=== PATIENT | female | born 1930 | race Caucasian/White ===

== ENCOUNTER 2016-12-21 16:08 | Emergency (ER) | payer MEDICARE, OTHER ==
[2016-12-21 17:49] VITALS: BP 129/61
[2016-12-21] MEDS ORDERED: Tetan/Diph/Pertus SYR(Tdap)* 0.5 ML SYR(BOOSTRIX) use SYR IM ONE (19:29)
[2016-12-21] MEDS ORDERED: Benzoin Compound STICK ONE (20:01)
--- NOTE | 2016-12-21 20:12 | RAD ---
Indication: Laceration lateral malleolus. 3 views of the right ankle demonstrates no fracture. Soft tissue swelling is noted adjacent to the lateral malleolus with likely laceration. IMPRESSION: Soft tissue swelling without foreign body or bony abnormality.
--- NOTE | 2016-12-21 20:18 | UC ---
Laceration HPI - HPI Summary HPI Summary: OUTSIDE AND TRIPPED - PIECE OF METAL FENCING PUNCTURED HER RIGHT ANKLE. UNSURE OF LAST TETANUS. - History Of Current Complaint Chief Complaint: UC Stated Complaint: ANKLE LACERATION Time Seen by Provider: 12/21/16 19:21 Hx Obtained From: Patient Laceration Location: Ankle - RIGHT Mechanism Of Injury: FB Potential Onset/Duration: Sudden Onset, Lasting Hours, Still Present Severity: Moderate Pain Intensity: 8 Pain Scale Used: 0-10 Numeric - Allergies/Home Medications Allergies/Adverse Reactions: Allergies Allergy/AdvReac Type Severity Reaction Status Date / Time Ciprofloxacin [From Cipro] Allergy Rash Verified 09/23/16 22:45 Penicillins [PCN] Allergy Unknown Verified 09/23/16 22:45 Reaction Details PMH/Surg Hx/FS Hx/Imm Hx Previously Healthy: Yes Endocrine History Of: Denies: Diabetes, Thyroid Disease Cardiovascular History Of: Denies: Cardiac Disorders, Hypertension, Pacemaker/ICD Respiratory History Of: Denies: COPD, Asthma GI/ History Of: Denies: Ulcer, Renal Disease Neurological History Of: Denies: Dementia, Seizures - Surgical History Surgical History: Yes Surgery Procedure, Year, and Place: right TOTAL KNEE REPLACEMENT. tonsilectomy. left leg balloon for clot - Family History Known Family History: Positive: None Negative: Hypertension, Diabetes - Social History Alcohol Use: Occasionally Alcohol Amount: wine Substance Use Type: None Smoking Status (MU): Never Smoked Tobacco Have You Smoked in the Last Year: No - Immunization History Most Recent Influenza Vaccination: 09/24/2016 Most Recent Tetanus Shot: unknown Most Recent Pneumonia Vaccination: unknown Review of Systems Constitutional: Negative Skin: Other - LACERATION RIGHT ANKLE Respiratory: Negative Cardiovascular: Negative Gastrointestinal: Negative Musculoskeletal: Arthralgia, Edema All Other Systems Reviewed And Are Negative: Yes Physical Exam Triage Information Reviewed: Yes Appearance: Well-Appearing, No Pain Distress, Well-Nourished Vital Signs: Initial Vital Signs Temp 98.5 F 12/21/16 17:43 Pulse 76 12/21/16 17:43 Resp 18 12/21/16 17:43 BP 129/61 12/21/16 17:43 Pulse Ox 96 12/21/16 17:43 Vital Signs Reviewed: Yes Eyes: Positive: Conjunctiva Clear ENT: Positive: Hearing grossly normal Neck: Positive: Supple Respiratory: Positive: No respiratory distress, No accessory muscle use Cardiovascular: Positive: Pulses Normal Abdomen Description: Positive: Soft Musculoskeletal: Positive: ROM Intact, Edema @ - RIGHT ANKLE LATERALLY Neurological: Positive: Alert Psychological: Positive: Age Appropriate Behavior Skin: Positive: Other - 1.5CM LINEAR LACERATION RIGHT ANKLE OVERLYING LATERAL MALLEOLUS WITH ASSOCIATED SOFT TISSUE SWELLING Laceration Repair - Laceration Repair 1 Description: Linear Laceration Size After Repair: Length (cm) - 1.5CM, Width (mm) - 1MM, Depth (mm) - 4MM Modified For Repair: No Cleansing Completed Via Routine Prep: Yes Closure Material: SteriStrips Diagnostics - Radiology RIGHT ANKLE XRAY Xray Interpretation: Positive (See Comments) - Soft tissue swelling without foreign body or bony abnormality. Radiology Interpretation Completed By: Radiologist Laceration Course/Dx - Course/Dx Course Of Treatment: DISCUSSED SUTURES VS. STERI STRIPS. ADVISED THAT SUTURES WOULD GIVE BETTER COSMETIC OUTCOME GIVEN GAPING WOUND. PT PREFERS STERI-STRIPS. UPDATE TDAP. XRAY WITHOUT FB OR BONY INJURY. - Differential Dx - Laceration/Wound Provider Diagnoses: 1. LACERATION REPAIR - RIGHT ANKLE. 2. TDAP BOOSTER Discharge - Discharge Plan Condition: Stable Disposition: HOME Patient Education Materials: Laceration (ED), Steristrips (ED) Referrals: Kim Luo MD [Primary Care Provider] - If Needed Additional Instructions: DO NOT PEEL THE STERI STRIPS OFF. THEY WILL FALL OFF ON THEIR OWN WITHIN A WEEK OR 2. SEEK FOLLOW-UP IF YOU DEVELOP SPREADING REDNESS OF THE SKIN, PURULENT DRAINAGE, FEVER, INCREASED PAIN OR ANY OTHER CONCERNING SYMPTOMS. TETANUS IMMUNIZATION GIVEN: You have been given an immunization against tetanus. Please record this in your records. In general, a booster is needed only once every 10 years. The tetanus shot protects against tetanus or "lockjaw," which is a complication of certain wound infections (the tetanus shot cannot protect against the actual infection). The immunization site may become warm and red due to local reaction. If this occurs, apply warm compresses and take aspirin or ibuprofen to reduce inflammation and discomfort. Return for evaluation if the reaction becomes severe.
== END 2016-12-21 20:24 | disposition home or self-care (01) ==
LOC: UCEAST 16:08
DX: S91.011A Laceration without foreign body, right ankle, initial encounter (principal); W26.9XXA Contact with unspecified sharp object(s), initial encounter; Y93.9 Activity, unspecified; Y92.9 Unspecified place or not applicable; Z23 Encounter for immunization; Z88.1 Allergy status to other antibiotic agents; Z88.0 Allergy status to penicillin; Z96.651 Presence of right artificial knee joint
CPT/HCPCS: 90471; 90715; 99212; G0463

== ENCOUNTER 2017-07-04 17:20 | Emergency (ER) | payer MEDICARE, OTHER ==
[2017-07-04 17:27] VITALS: BP 150/73
[2017-07-04] MEDS ORDERED: predniSONE TAB* 20 MG PO ONE (17:38)
[2017-07-04] MEDS ORDERED: diPHENhydraMINE PO* 50 MG PO ONE (17:38)
--- NOTE | 2017-07-04 19:28 | ED ---
Nishant Fernandez Nikita, scribed for Sky Pearson MD on 07/04/17 at 1727 . Allergic Reaction/Systemic - History of Current Complaint Hx Obtained From: Patient Hx Last Menstrual Period: menopausal Onset/Duration: Sudden Onset, Started days ago - Last night, Still Present Timing: Constant, Lasting Days - Last night Location: Discrete @ - Face but has spread to arms Character: Swelling, Pruritus Aggravating Factor(s): Nothing Alleviating Factor(s): Cold Associated Signs And Symptoms: Positive: Other: - Patient reports swelling, erythema, and pruritic symptoms mostly around the eyes, pruritic rash under the chin, inflammation and slightly pruritic on bilateral arms and chest. Patient denies dyspnea and swelling in the throat, and rhinorrhea. - Allergies/Home Medications Allergies/Adverse Reactions: Allergies Allergy/AdvReac Type Severity Reaction Status Date / Time Ciprofloxacin [From Cipro] Allergy Rash Verified 07/04/17 17:27 Penicillins [PCN] Allergy Unknown Verified 07/04/17 17:27 Reaction Details Home Medications: Home Medications Multiple Vitamins W/ Minerals [Multivitamin] 1 liq PO DAILY 07/04/17 [History Confirmed 07/04/17] PMH/Surg Hx/FS Hx/Imm Hx Endocrine/Hematology History: Denies: Hx Diabetes, Hx Thyroid Disease Cardiovascular History: Reports: Other Cardiovascular Problems/Disorders - PAD Denies: Hx Hypertension, Hx Pacemaker/ICD Respiratory History: Denies: Hx Asthma, Hx Chronic Obstructive Pulmonary Disease (COPD) GI History: Denies: Hx Ulcer History: Denies: Hx Dialysis, Hx Renal Disease Musculoskeletal History: Reports: Hx Orthopedic Injury - right femur fx Denies: Hx Back Problems Sensory History: Denies: Hx Contacts or Glasses, Hx Hearing Aid Opthamlomology History: Denies: Hx Contacts or Glasses Neurological History: Denies: Hx Dementia, Hx Seizures Psychiatric History: Denies: Hx Panic Disorder - Cancer History Cancer Type, Location and Year: none - Surgical History Surgery Procedure, Year, and Place: right TOTAL KNEE REPLACEMENT. tonsilectomy. left leg balloon for clot Hx Anesthesia Reactions: No Infectious Disease History: Denies: Hx Clostridium Difficile, Hx Hepatitis, Hx Human Immunodeficiency Virus (HIV), Hx of Known/Suspected MRSA, Hx Shingles, Hx Tuberculosis, Hx Known/ Suspected VRE, Hx Known/Suspected VRSA, History Other Infectious Disease - Family History Known Family History: Negative: Hypertension, Diabetes - Social History Alcohol Use: Occasionally Alcohol Amount: wine Substance Use Type: Reports: None Smoking Status (MU): Never Smoked Tobacco Have You Smoked in the Last Year: No Review of Systems Positive: Erythema, Other - Swelling, pruritic symptoms Positive: Other - pruritic rash under the chin; NEGATIVE: rhinorrhea Positive: Other - NEGATIVE: dyspnea and swelling in throat Positive: Other - , inflammation and slightly pruritic on bilateral arms and chest All Other Systems Reviewed And Are Negative: Yes Physical Exam - Summary Physical Exam Summary: Skin: There is a macular rash on both arms. HEENT: There is redness to her face and hives on her face. There is marking swelling on her eyes. Orbits are edematous and swelling. The pupils are equal and reactive. The tympanic membranes are intact. There is no rhinorrhea or conjuctivitis. There is no swelling in the mouth throat, or posterior pharynx. No strider on neck. Respiratory: Lungs are clear. Triage Information Reviewed: Yes Vital Signs On Initial Exam: Initial Vitals Temp Pulse Resp BP Pulse Ox 99.8 F 93 18 150/73 96 07/04/17 17:24 07/04/17 17:24 07/04/17 17:24 07/04/17 17:24 07/04/17 17:24 Vital Signs Reviewed: Yes Diagnostics - Vital Signs Vital Signs Temp Pulse Resp BP Pulse Ox 07/04/17 17:24 99.8 F 93 18 150/73 96 - Laboratory Lab Statement: Any lab studies that have been ordered have been reviewed, and results considered in the medical decision making process. Allergic Reaction Course/Dx - Course Assessment/Plan: This patient is an 87 year old F presenting to [facility] with a chief complaint of an allergic reaction since yesterday. The pt was out weeding yesterday and might have come in contact with poison mil (didnt see any ). PT is currently feeling no pain. The CC is described as unbearable. Symptoms aggravated by nothing. Symptoms alleviated by cold compress (took Aspirin which did not help). Patient reports swelling, erythema, and pruritic symptoms mostly around the eyes, pruritic rash under the chin, inflammation and slightly pruritic on bilateral arms and chest. Patient denies dyspnea and swelling in the throat, and rhinorrhea. Pt has a cat that may have rolled around in something that could have caused her allergic reaction. Pt will be discharged with Benadryl and Prednisone and is instructed to follow up with her PCP. Pt is agreeable with this plan. - Diagnoses Differential Diagnosis/HQI/PQRI: Positive: Other - rhus dermatitis, poison mil exposure Provider Diagnoses: Allergic reaction Discharge - Discharge Plan Condition: Stable Disposition: HOME Prescriptions: diPHENhydraMINE PO* [Benadryl PO 50 MG CAP*] 50 mg PO Q6H PRN #30 cap PRN Reason: Itching predniSONE TAB* [Deltasone TAB*] 10 mg PO DAILY #38 tab Patient Education Materials: Allergies (ED) Referrals: Kim Luo MD [Primary Care Provider] - 3 Days The documentation as recorded by the Nishant leavitt Nikita accurately reflects the service I personally performed and the decisions made by , Sky Pearson MD.
== END 2017-07-04 17:52 | disposition home or self-care (01) ==
LOC: UCEAST 17:20
DX: T78.40XA Allergy, unspecified, initial encounter (principal); X58.XXXA Exposure to other specified factors, initial encounter; I73.9 Peripheral vascular disease, unspecified; Z96.651 Presence of right artificial knee joint; Z88.1 Allergy status to other antibiotic agents; Z88.0 Allergy status to penicillin
CPT/HCPCS: 99212; A9270-GY; G0463; J7512

== ENCOUNTER 2018-12-08 11:31 | Emergency (ER) | payer MEDICARE, OTHER ==
--- NOTE | 2018-12-08 12:02 | ED ---
Lower Extremity - HPI Summary HPI Summary: An 88 y/o female presents to [facility] with a chief complaint of right thigh pain post mechanical fall on 12/07/18. She says that she was out shoveling snow when she slipped and fell. She denies hitting her head or back, claiming that she landed on her side and hands. She is able to ambulate but notes that leg movement and walking aggravates her pain. She has had a constant pain ever since her fall. At triage she rated her pain as an 8/10 in severity. She reports that her pain is from her right knee up to her hip. She says that she has had surgeries around her current area of pain after a fall during Thanksgiving dinner two years ago. She denies fever, chills, erythema (eyes), sore throat, chest pain, shortness of breath, cough, abdominal pain, vomiting, nausea, dysuria, hematuria, edema, rash and dizziness. - History of Current Complaint Chief Complaint: EDExtremityLower Stated Complaint: RIGHT THIGH PAIN Time Seen by Provider: 12/08/18 11:50 Hx Obtained From: Patient Hx Last Menstrual Period: menopausal Mechanism Of Injury: Fall From A Standing Position Onset of Pain: Immediate, Post Accident, Prior to Arrival Onset/Duration: Days Severity Initially: Severe Severity Currently: Severe Pain Intensity: 8 Pain Scale Used: 0-10 Numeric Timing: Constant, Lasting Days Location: Is Discrete @ - right thigh Character Of Pain: Unable To Describe Associated Signs And Symptoms: Positive: Knee Pain. Negative: Swelling, Fever, Dizziness Aggravating Factor(s): Standing, Ambulation Alleviating Factor(s): Other - sitting down, not moving her leg Able to Bear Weight: Yes - Allergies/Home Medications Allergies/Adverse Reactions: Allergies Allergy/AdvReac Type Severity Reaction Status Date / Time MS Ciprofloxacin [From Cipro] Allergy Rash Verified 07/04/17 17:27 MS Penicillins [PCN] Allergy Unknown Verified 07/04/17 17:27 Reaction Details Home Medications: Home Medications NK [No Home Medications Reported] 12/08/18 [History Confirmed 12/08/18] PMH/Surg Hx/FS Hx/Imm Hx Endocrine/Hematology History: Denies: Hx Diabetes, Hx Thyroid Disease Cardiovascular History: Reports: Other Cardiovascular Problems/Disorders - PAD Denies: Hx Hypertension, Hx Pacemaker/ICD Respiratory History: Denies: Hx Asthma, Hx Chronic Obstructive Pulmonary Disease (COPD) GI History: Denies: Hx Ulcer History: Denies: Hx Dialysis, Hx Renal Disease Musculoskeletal History: Reports: Hx Orthopedic Injury - right femur fx Denies: Hx Back Problems Sensory History: Denies: Hx Contacts or Glasses, Hx Hearing Aid Opthamlomology History: Denies: Hx Contacts or Glasses Neurological History: Denies: Hx Dementia, Hx Seizures Psychiatric History: Denies: Hx Panic Disorder - Cancer History Cancer Type, Location and Year: none - Surgical History Surgery Procedure, Year, and Place: RIGHT TOTAL KNEE REPLACEMENT. TONSILLECTOMY Hx Anesthesia Reactions: No Infectious Disease History: No Infectious Disease History: Denies: Hx Clostridium Difficile, Hx Hepatitis, Hx Human Immunodeficiency Virus (HIV), Hx of Known/Suspected MRSA, Hx Shingles, Hx Tuberculosis, Hx Known/ Suspected VRE, Hx Known/Suspected VRSA, History Other Infectious Disease, Traveled Outside the [place] in Last 30 Days - Family History Known Family History: Negative: Hypertension, Diabetes - Social History Alcohol Use: Occasionally Alcohol Amount: wine Substance Use Type: Reports: None Smoking Status (MU): Never Smoked Tobacco Have You Smoked in the Last Year: No Review of Systems Negative: Fever, Chills Negative: Erythema Negative: Sore Throat Negative: Chest Pain Negative: Shortness Of Breath, Cough Negative: Abdominal Pain, Vomiting, Nausea Negative: dysuria, hematuria Positive: Arthralgia - right knee, Myalgia - right thigh. Negative: Edema Negative: Rash Neurological: Negative - dizziness, hitting head on fall. All Other Systems Reviewed And Are Negative: Yes Physical Exam - Summary Physical Exam Summary: Constitutional: Well-developed, Well-nourished, Alert. (-) Distressed Skin: Warm, Dry HENT: Normocephalic; Atraumatic Eyes: Conjunctiva normal Neck: Musculoskeletal ROM normal neck. (-) JVD, (-) Stridor, (-) Tracheal deviation Cardio: Rhythm regular, rate normal, Heart sounds normal; Intact distal pulses; The pedal pulses are 2+ and symmetric. Radial pulses are 2+ and symmetric. (-) Murmur Pulmonary/Chest wall: Effort normal. (-) Respiratory distress, (-) Wheezes, (-) Rales Abd: Soft, (-) epigastric tenderness, (-) Distension, (-) Guarding, (-) Rebound Musculoskeletal: Full ROM, no bony tenderness to hip or knee. (-) Edema Lymph: (-) Cervical adenopathy Neuro: Alert, Oriented x3 Psych: Mood and affect Normal Triage Information Reviewed: Yes Vital Signs On Initial Exam: Initial Vitals Temp Pulse Resp BP Pulse Ox 98.8 F 81 18 121/61 94 12/08/18 11:34 12/08/18 11:34 12/08/18 11:34 12/08/18 11:34 12/08/18 11:34 Vital Signs Reviewed: Yes Diagnostics - Vital Signs Vital Signs Temp Pulse Resp BP Pulse Ox 12/08/18 11:34 98.8 F 81 18 121/61 94 - Laboratory Lab Statement: Any lab studies that have been ordered have been reviewed, and results considered in the medical decision making process. - Radiology knee x-ray Radiology Interpretation Completed By: Radiologist Summary of Radiographic Findings: Right knee replacement in satisfactory position. ED physician has reviewed this imaging report. hip/pelvis x-ray Radiology Interpretation Completed By: Radiologist Summary of Radiographic Findings: unremarkable right hip. ED physician has reviewed this imaging report. femur x-ray Radiology Interpretation Completed By: Radiologist Summary of Radiographic Findings: No definite fracture of the femur is noted. A plate and screws are noted. fixating a prior fracture. ED physician has reviewed this imaging report. Re-Evaluation - Re-Evaluation First Eval Re-Evaluation Time: 14:00 Change: Improved Comment: patient is ambulatory Lower Extremity Course/Dx - Course Course Of Treatment: An 88 y/o female presents to [facility] with a chief complaint of right thigh pain post mechanical fall on 12/07/18. She says that she was out shoveling snow when she slipped and fell. The physical exam revealed full ROM with no bony tenderness to her hip or knee. Knee x-ray impression: Right knee replacement in satisfactory position. Femur x-ray impression: No definite fracture of the femur is noted. A plate and screws are noted. fixating a prior fracture. Hip/pelvis x-ray impression: unremarkable right hip. Upon re-eval the patient is ambulatory. The patient will be discharged. She was instructed to Take Tylenol or Motrin for pain and to Use a heating pad. Return precautions were given. She is agreeable with this plan. - Diagnoses Provider Diagnoses: Contusion of right hip Discharge - Sign-Out/Discharge Documenting (check all that apply): Patient Departure - DC Patient Received Moderate/Deep Sedation with Procedure: No - Discharge Plan Condition: Stable Disposition: HOME Patient Education Materials: Hip Contusion (ED) Referrals: Kim Luo MD [Primary Care Provider] - (2-3 days) Additional Instructions: Take Tylenol or Motrin for pain. Use a heating pad. Return to the ED if you experience any new or worsening symptoms. - Billing Disposition and Condition Condition: STABLE Disposition: Home - Attestation Statements Document Initiated by Scribe: Yes Documenting Scribe: Cesar Malik Provider For Whom Scribe is Documenting (Include Credential): Dion Read MD Scribe Attestation: Cesar Fernandez, scribed for Dion Read MD on 12/11/18 at 0739. Scribe Documentation Reviewed: Yes Provider Attestation: The documentation as recorded by the Cesar leavitt accurately reflects the service I personally performed and the decisions made by Dion alcantara MD Status of Scribe Document: Viewed
[2018-12-08] MEDS ORDERED: Acetaminophen TAB* 325 MG PO ONE (13:48)
[2018-12-08 14:18] VITALS: BP 138/87
== END 2018-12-08 14:17 | disposition home or self-care (01) ==
LOC: ED 11:31
DX: S70.01XA Contusion of right hip, initial encounter (principal); M25.561 Pain in right knee; Z88.0 Allergy status to penicillin; W19.XXXA Unspecified fall, initial encounter; Y92.9 Unspecified place or not applicable
CPT/HCPCS: 99282; A9270-GY